=== PATIENT | female | born 1930 | race Caucasian/White ===

== ENCOUNTER 2016-10-16 08:58 | Observation (INO) | payer OTHER, BC ==
[~2016-10-16] VITALS: Ht 154.9 cm; Wt 69.0 kg
[~2016-10-16 08:58] MED LIST: AMITIZA24 MICROGR PO; ASPIRIN EC325 MG PO; ASPIRIN81 M2 PO; CELECOXIB200 MG PO; COENZYME Q10100 M1 PO; FISH OIL 1,2001 EAC4 PO; IRON325 M1 PO; LASIX20 MG PO; LIPITOR40 MG PO; NEXIUM40 MG PO; NITROGLYCERIN0.4 MG SL; STOOL SOFTENER100 MG PO; TOPROL XL100 MG PO; TRAMADOL HCL50 MG PO; VITAMIN B12-FO1 EACH PO; VITAMIN D2000 UNIT PO
[2016-10-16 10:21] LABS: HEMATOCRIT 40.2 % (36.0-46.0); MCH 29.4 PG (29.0-34.0); MCHC 32.6 G/DL (30.0-36.0); MCV 90.3 FL (83-99); MEAN PLAT.VOLUME 8.6 uM^3 (9.5-12.4); PLATELET COUNT 196 K/uL (156-360); RBC DIS.WIDTH-CV 13.8 % (11.8-14.6); RBC DIS.WIDTH-SD 44.1 % (39-53); RED BLOOD COUNT 4.45 M/uL (3.80-5.20); WHITE BLOOD COUNT 7.8 K/uL (4.1-10.2)
[2016-10-16 10:35] LABS: CHLORIDE 105 mEq/L (99-109); POTASSIUM 4.4 mEq/L (3.7-5.4); SODIUM 139 mEq/L (136-147)
[2016-10-16 10:37] LABS: GLUCOSE 108 mg/dL (70-99)
[2016-10-16 10:39] LABS: ANION GAP 12 MEQ/L (2-14)
[2016-10-16 10:41] LABS: GFR ESTIMATE (CALCULATED) 50 mL/min/
[2016-10-16 10:42] LABS: UREA NITROGEN (BUN) 30 mg/dL (9-23)
[2016-10-16 10:44] LABS: TROP-I INTERPRETATION NEGATIVE; TROPONIN-I < 0.01 ng/mL (0.0-0.30)
[2016-10-16] MEDS ORDERED: ASPIR-LOW81 MG PO (12:13)
[2016-10-16] MEDS ORDERED: TOPROL XL50 MG PO (12:19)
[2016-10-16] MEDS ORDERED: CYANOCOBALAM1000 MCG PO (12:21)
[2016-10-16] MEDS ORDERED: DEXILANT60 MG PO (12:21)
[2016-10-16] MEDS ORDERED: MIRALAX17 GM PO (12:22)
[2016-10-16 15:44] LABS: SAMPLE HEMOLYSIS CHECK 1; SAMPLE ICTERIC CHECK 0; SAMPLE LIPEMIA CHECK 0
[2016-10-16 15:50] LABS: HDL CHOLESTEROL 67 MG/DL (Desirable>=50); LDL CHOLESTEROL 126 mg/dL (Desirable<100); NON-HDL CHOLESTEROL 149 mg/dL (Desirable<160); TOTAL CHOLESTEROL 216 mg/dL (Desirable<200); TRIGLYCERIDES 117 MG/DL (Normal: <150)
[2016-10-16 16:12] VITALS: BP 160/72
[2016-10-16 17:05] LABS: TROP-I INTERPRETATION NEGATIVE; TROPONIN-I < 0.01 ng/mL (0.0-0.30)
[2016-10-16] MEDS ORDERED: PREDNISONE20 MG PO (17:11)
[2016-10-16 19:00] VITALS: BP 108/52
[2016-10-16 23:32] LABS: TROP-I INTERPRETATION NEGATIVE; TROPONIN-I < 0.01 ng/mL (0.0-0.30)
[2016-10-17 04:58] VITALS: BP 99/55
[2016-10-17 07:54] LABS: ANION GAP 13 MEQ/L (2-14); CHLORIDE 103 MEQ/L (99-109); POTASSIUM 4.4 MEQ/L (3.7-5.4); SAMPLE HEMOLYSIS CHECK 0; SAMPLE ICTERIC CHECK 0; SAMPLE LIPEMIA CHECK 0; SODIUM 140 MEQ/L (136-147)
[2016-10-17 08:00] LABS: GFR ESTIMATE (CALCULATED) 50 mL/min/; GLUCOSE 98 mg/dL (70-99); UREA NITROGEN (BUN) 34 mg/dL (9-23)
[2016-10-17 08:16] VITALS: BP 128/60
[2016-10-17 08:29] LABS: TROP-I INTERPRETATION NEGATIVE; TROPONIN-I < 0.01 ng/mL (0.0-0.30)
[2016-10-17] MEDS ORDERED: LEVOFLOXACIN750 MG PO ×2 (10:42→11:32)
[2016-10-17] MEDS ORDERED: BENZONATATE150 MG PO (11:22)
== END 2016-10-17 13:25 | disposition home or self-care (01) ==
LOC: EME 08:58 → 5WEST 13:58 → EDOF 13:58 → 5WEST 16:09
PROVIDERS: Emergency Medicine; Internal Medicine
DX: R07.9 Chest pain, unspecified (principal); J06.9 Acute upper respiratory infection, unspecified; I10 Essential (primary) hypertension; I35.0 Nonrheumatic aortic (valve) stenosis; I25.10 Atherosclerotic heart disease of native coronary artery without angina pectoris; E78.5 Hyperlipidemia, unspecified; R68.84 Jaw pain; R06.02 Shortness of breath; R42 Dizziness and giddiness; Z82.49 Family history of ischemic heart disease and other diseases of the circulatory system
CPT/HCPCS: 71020; 80048; 80061; 84484; 85027; 93005; 99281; 99285; G0378; J1650; J7512

== ENCOUNTER 2017-07-09 14:28 | Emergency (ER) | payer OTHER, BC ==
[~2017-07-09] VITALS: Ht 154.9 cm; Wt 69.7 kg
[~2017-07-09 14:28] MED LIST changes: +ASPIR-LOW81 MG PO; +BENZONATATE150 MG PO; +CYANOCOBALAM1000 MCG PO; +DEXILANT60 MG PO; +LEVOFLOXACIN750 MG PO; +MIRALAX17 GM PO; +PREDNISONE20 MG PO; +TOPROL XL50 MG PO
[2017-07-09 16:40] LABS: ADD MIUA? YES; BILIRUBIN NEGATIVE; BLOOD NEGATIVE; COLOR STRAW ((YELLOW)); GLUCOSE (STRIP) NEGATIVE; KETONES NEGATIVE; LEUKOCYTES TRACE; NITRITE NEGATIVE; PROTEIN (STRIP) NEGATIVE; SPECIFIC GRAVITY 1.008 (1.000-1.030); UROBILINOGEN 0.2 MG/DL (0.2-1.0)
[2017-07-09 16:43] LABS: BACTERIA RARE /HPF; EPITHELIAL CELLS RARE /HPF; MUCUS NONE SEEN /LPF; RED BLOOD CELLS 0-5 /HPF (0-5); WHITE BLOOD CELLS 0-5 /HPF (0-5)
[2017-07-09 17:02] LABS: HEMATOCRIT 39.1 % (36.0-46.0); MCH 29.6 PG (29.0-34.0); MCHC 32.2 G/DL (30.0-36.0); MCV 91.8 FL (83-99); MEAN PLAT.VOLUME 8.6 uM^3 (9.5-12.4); PLATELET COUNT 174 K/uL (156-360); RBC DIS.WIDTH-CV 13.4 % (11.8-14.6); RBC DIS.WIDTH-SD 45.9 % (39-53); RED BLOOD COUNT 4.26 M/uL (3.80-5.20); WHITE BLOOD COUNT 5.5 K/uL (4.1-10.2)
[2017-07-09 17:08] LABS: PROTHROMBIN TIME 11.2 SEC (10.2-12.9)
[2017-07-09 17:10] LABS: PTT 28.5 SEC (25-37)
[2017-07-09 17:17] LABS: CHLORIDE 108 mEq/L (99-109); SODIUM 141 mEq/L (136-147)
[2017-07-09 17:19] LABS: GLUCOSE 101 mg/dL (70-99)
[2017-07-09 17:20] LABS: ANION GAP 7 MEQ/L (2-14)
[2017-07-09 17:23] LABS: GFR ESTIMATE (CALCULATED) 55 mL/min/
[2017-07-09 17:24] LABS: UREA NITROGEN (BUN) 18 mg/dL (9-23)
[2017-07-09 17:29] LABS: TROP-I INTERPRETATION NEGATIVE; TROPONIN-I < 0.01 ng/mL (0.0-0.30)
[2017-07-09 19:01] LABS: TROP-I INTERPRETATION NEGATIVE; TROPONIN-I < 0.01 ng/mL (0.0-0.30)
[2017-07-09 19:38] VITALS: BP 139/72
== END 2017-07-09 19:41 | disposition home or self-care (01) ==
LOC: EME 14:28
PROVIDERS: Emergency Medicine
DX: R55 Syncope and collapse (principal); R42 Dizziness and giddiness; M54.2 Cervicalgia; R68.84 Jaw pain; I51.7 Cardiomegaly; I10 Essential (primary) hypertension; Z79.82 Long term (current) use of aspirin
CPT/HCPCS: 71020; 80048; 81003; 83605; 84484; 85027; 85610; 85730; 87086; 93005; 99281; 99285